=== PATIENT | female | born 1990 | race Asian ===

== ENCOUNTER 2022-01-05 15:12 | Outpatient (CLI) | payer BC, SELFPAY ==
[2022-01-05 18:48] LABS: HIV 1/2/P24 Combo Screen* Negative (Negative)
[2022-01-05 19:51] LABS: Hepatitis B Surface Antigen* Negative (Negative)
[2022-01-05 20:08] LABS: Hepatitis C Virus Antibody* Negative (Negative)
[2022-01-05 20:43] LABS: Chlamydia DNA Amplified* NOT DETECTED (No Detected); GC DNA Amplified* NOT DETECTED (No Detected)
[2022-01-07 14:26] LABS: Varicella-Zoster Virus Ab, IgG <10.0 IV
[2022-01-07 14:27] LABS: Rapid Plasma Reagin (RPR) Non Reactive (Non Reactive)
== END 2022-01-05 15:13 | disposition home or self-care (01) ==
PROVIDERS: PCP Family Medicine; Visit Provider Advanced Practice Midwife
DX: Z34.91 Encounter for supervision of normal pregnancy, unspecified, first trimester (principal); Z3A.11 11 weeks gestation of pregnancy
CPT/HCPCS: 76801; 86592; 86703; 86762; 86787; 86803; 86850; 86900; 86901; 87086; 87340; 87491; 87591; 87624; 88175

== ENCOUNTER 2022-03-06 09:10 | Outpatient (CLI) | payer BC, SELFPAY ==
--- NOTE | 2022-03-06 09:15 | CRLHL7_ITS ---
For Patients: As a result of the Century Cures Act, medical imaging exams and procedure reports are released immediately into your electronic medical record. You may view this report before your referring provider. If you have questions, please contact your health care provider. INDICATION: Evaluate anatomy. COMPARISON: 01/05/2022 TECHNIQUE: Real time amor scale imaging of the fetus was performed as well as color Doppler analysis of the umbilical vessels. FINDINGS: Sonographic imaging demonstrates a single living intrauterine gestation. Fetus demonstrates a regular cardiac rate of 173 beats per minute. Fetus has a breech position. The placenta lies posterior. The edge of the placenta is located 0.7 cm from the internal cervical os on the transvaginal images. Amniotic fluid volume appears normal. Single deepest vertical pocket: 3.8 cm. The cervix is closed and measures 4.5 cm in length. The composite ultrasound gestational age is calculated at 19 weeks 6 days with an estimated sonographic due date of 07/25/2022. The estimated weight is 320 grams which lies at the 56th %. The following biometric measurements were obtained: Biparietal diameter: 4.6 cm/19 weeks 6 days 55th% Head circumference: 16.7 cm/19 weeks 3 days 26th% Abdominal circumference: 15.1 cm/20 weeks 3 days 67th% Femur length: 3.1 cm/19 weeks 4 days 34th% The HC/AC ratio measures: 1.10 range (1.08-1.26) On anatomic survey, there is a normal appearance of the cerebral ventricles, cavum septi pellucidi, cisterna magna and cerebellum. The nose, lips, and facial profile appear normal. The cervical, thoracic and lumbar spine are well visualized and appear normal. There is a normal four-chamber heart view and the left and right ventricular outflow tracts are not well visualized. The diaphragm and stomach appear normal. The kidneys and bladder also appear normal. There is a normal three-vessel cord and cord insertion site. The four extremities appear normal. IMPRESSION: Incomplete visualization of the LVOT and RVOT due to position. Normal four-chamber heart. Remainder of the anatomic survey is normal. Low lying posterior placenta with the edge of the placenta located 7 millimeters from the internal cervical os. There is a curvilinear band within the fundal gestational sac arising from the edge of the placenta. This is best appreciated on the cine clips although is also visualized on the static image . Differential diagnosis includes amniotic shelf, circumvallate placenta or amniotic band. Maternal medicine consult recommended. Dictated by Chuy Kaur MD @ 03/06/2022 11:13:46 AM (Electronically Signed)
== END 2022-03-06 09:11 | disposition home or self-care (01) ==
LOC: US 09:10
PROVIDERS: PCP Family Medicine; Visit Provider Advanced Practice Midwife
DX: Z34.82 Encounter for supervision of other normal pregnancy, second trimester (principal); Z3A.19 19 weeks gestation of pregnancy
CPT/HCPCS: 76805; 76817

== ENCOUNTER 2022-05-06 08:06 | Outpatient (CLI) | payer BC, SELFPAY ==
[2022-05-06 08:15] LABS: Glucose Fasting Check 79 mg/dl (60-115)
[2022-05-06 11:54] LABS: Glucose 1 Hour Gest 189 mg/dl (70-180)
[2022-05-06 11:55] LABS: Glucose GTT-Gestational 3 Hr 106 mg/dl (70-140)
== END 2022-05-06 08:07 | disposition home or self-care (01) ==
LOC: NFLDREF 08:06
PROVIDERS: PCP Family Medicine; Visit Provider Advanced Practice Midwife
DX: Z34.03 Encounter for supervision of normal first pregnancy, third trimester (principal)
CPT/HCPCS: 82951; 82952

== ENCOUNTER 2022-06-08 09:15 | Outpatient (CLI) | payer BC, SELFPAY ==
--- NOTE | 2022-06-08 09:15 | CRLHL7_ITS ---
For Patients: As a result of the Century Cures Act, medical imaging exams and procedure reports are released immediately into your electronic medical record. You may view this report before your referring provider. If you have questions, please contact your health care provider. OB ULTRASOUND 06/08/2022 CLINICAL HISTORY: Small for dates, growth. JOSE by LMP: 07/26/2022. GA: 33 weeks 1 day. Gestation: Single. FINDINGS: CERVIX: Not visualized. POSITION: Vertex. AMNIOTIC FLUID: 5.2 cm. PLACENTA: TA. Posterior left wall. DOPPLERS: heart rate: 141 bpm. BIOMETRY: BPD: 8.3 cm, 33 weeks 4 days. 57% HC: 30.8 cm, 34 weeks 3 days. 45% AC: 29.0 cm, 33 weeks 0 days. 48% FL: 6.2 cm, 32 weeks 2 days. 17% EFW: 2091 g, 4 lb 10 oz. age by this US: 33 weeks 2 days. JOSE by this US: 07/25/2022. Percentile by JOSE: 36% IMPRESSION: Single live intrauterine gestation at 33 weeks 2 days. JOSE 07/25/2022. Estimated weight measures 2091 grams which lies at the 36th percentile. Laura Clements M.D. Diagnostic/Breast Radiologist [email or web address] Transcribed: 11:18 a.m. DW/Dictated by: Laura Clements MD @ 06/08/2022 10:04:00 AM (Electronically Signed)
== END 2022-06-08 09:16 | disposition home or self-care (01) ==
LOC: US 09:15
PROVIDERS: PCP Family Medicine; Visit Provider Advanced Practice Midwife
DX: O36.5930 Maternal care for other known or suspected poor fetal growth, third trimester, not applicable or unspecified (principal); Z3A.33 33 weeks gestation of pregnancy
CPT/HCPCS: 76816

== ENCOUNTER 2022-06-29 10:35 | Outpatient (CLI) | payer BC, SELFPAY ==
[2022-06-30 14:06] LABS: Strep B DNA Probe NEGATIVE (Negative)
[2022-06-30 15:16] LABS: Strep B Pen/Amox Allergy y
== END 2022-06-29 10:36 | disposition home or self-care (01) ==
LOC: NFLDREF 10:35
PROVIDERS: PCP Family Medicine; Visit Provider Advanced Practice Midwife
DX: Z34.93 Encounter for supervision of normal pregnancy, unspecified, third trimester (principal); Z3A.36 36 weeks gestation of pregnancy
CPT/HCPCS: 87081; 87653

== ENCOUNTER 2022-07-30 14:40 | Inpatient (IN) | payer BC, SELFPAY ==
[2022-07-30] VITALS (37 sets, daily range): BP systolic 129–162; BP diastolic 65–97; PULSE 59–99; RESP 18; TEMP 37.2–37.4; O2SAT 98–100; BMI 29.6
[2022-07-30 14:23] LABS: Amnisure Rom* Negative
--- NOTE | 2022-07-30 16:26 | P.LDBA_ITS ---
Subjective History of Present Illness Narrative: Pau is a 32 yo at 40 4/7 weeks gestation being admitted to Labor and Delivery for spontaneous onset of labor. She reports contractions started yesterday, midday. Initially they were irregular and mild. She was able to sleep some overnight but was frequently awoken by contractions. This morning about 7 am she had a burst of fluid in her underwear where she thought her water had possibly broke. She did not feel it was urine but she has not had much discharge since this time. Her contractions have intensified and are now regular. She is working hard to breath through them. She initially asked for an epidural but has since decided to wait and move around. Her full history and physical was dictated by Rebecca Zayas CNM on 07/06/2022. Please see this for details. OB 1. Varicella non-immune Recommend vaccine 2. NILM pap with +HPV Retest in 1 year 3. Synechiae 4. Low-lying placenta (0.7 cm from os): RESOLVED (see below) 5. Abnormal anatomy scan - difficult to view cardiac outflow tracts r/t position, low lying placenta, band within fundal gestational sac - possible amniotic shelf or band or circumvallate placenta. Referral for MFM placed. Adrián MFM 03/17/22: No previa, over 2 cm from os. EFW 83%. No abnormalities detected. ADAMS: WNL. Fundal right uterine synechiae, likely scar from her prior miscarriage. Does not lead to any adverse outcomes. 6. Failed 1 hour GTT 144 passed 3 hr, 3/4 numbers; declines nutrition referral 7. Anemia, hgb 10.3 at 28 weeks. Hgb 10.5 at 36 weeks. Recommended iron daily 8. Covid positive 06/01/22. Growth at 33 weeks: 36%ile Growth u/s 37 weeks: Declines 9. Measuring small for dates at 32 wks. Growth u/s: EFW 36% at 33 wks Repeat growth ordered at 39 weeks: 43%ile OB - Problem Based A/P Additional Plan (1) Spontaneous onset of labor: Status: Acute (2) Pain during labor: Status: Acute (3) 40 weeks gestation of : Status: Acute Plan ASSESSMENT:? 32 yo at 40 4/7 weeks gestation?by 1st trimester US complicated by:?Synechiae (right upper uterine scarring), anemia, COVID + Labor type: Spontaneous, Early labor? Category 1 FHR pattern.?? Labor complicated by: none? GBS negative? ? PLAN:? 1. Routine intrapartum cares as ordered. Continue with expectant management? 2. Monitoring per policy, intermittent until epidural placement, then continuous? 3. Planning for an epidural. Candidate for analgesia of choice when she requests.?? 4. Patient encouraged to reposition and ambulate to promote physiologic labor and .? 5. Anticipate ? Delivery/Labor/Induction Plan Plan: expectant management OB Exam Physical Exam Vital signs: Temp Pulse Resp BP Pulse Ox 98.9 F 67 18 138/87 98 07/30/22 13:45 07/30/22 13:45 07/30/22 13:45 07/30/22 13:45 07/30/22 13:45 Narrative: Vitals Reviewed Constitutional:? Alert and oriented x3 HEENT:? Normocephalic, atraumatic Neck:? Supple Lungs:? Clear to auscultation bilaterally Heart:? Regular rate and rhythm, no murmur, rub or gallop Abdomen:? Soft, nontender, and gravid. Vertex by Jeramy's, confirmed with cervical exam by RN. Extremities:? No edema or erythema Detailed Labor and Delivery Exam Patient Gravid: Yes Dilation (cm): 3 Effacement (%): 70 Contraction Frequency: 2-3 minutes Tachysystole: No Contraction intensity: Moderate Fetus (Single) Station: 0 Amniotic Membrane Status: intact Heart Rate Baseline: 155 Monitor Accelerations: Absent Monitor Decelerations: None Director Of Outreach Variability: Moderate (6-25)
[2022-07-30] MEDS: LACTATED RINGERS 1000 ML 1,000 ML 125 ML IV ×2 (16:56→18:24)
[2022-07-30] MEDS: ROPIVACAINE 0.2% 100 ml 100 ML 12 MG EPIDURAL (17:49)
[2022-07-30] MEDS: LIDOCAINE 2% (PF) 5 ML VIAL EPIDURAL (17:49)
--- NOTE | 2022-07-30 17:52 | PM.ANBPRC ---
PFSH COUNTS INCLUDE 234 BEDS AT THE [facility] Medical History (Updated 07/30/22 @ 16:37 by Rula Haas CNM) Primary oligomenorrhea ?N91.3 - Primary oligomenorrhea (ICD-10) Missed (2020) ?O02.1 - Missed (ICD-10) Surgical History (Updated 01/05/22 @ 15:15 by Kathy Powers CNM) [place] teeth extracted ?K08.409 - Partial loss of teeth, unspecified cause, unspecified class (ICD-10) Family History (Updated 02/03/22 @ 11:34 by Chikis Thomason) Other No family history of breast cancer No family history of cardiovascular disease No family history of colorectal cancer Social History Smoking Status: Never smoker Little interest or pleasure in doing things: more than half the days Feeling down, depressed, or hopeless: more than half the days Meds Home Medications and Allergies Home Medications Medication Instructions Recorded Confirmed Type multivitamin no.47-iron fum 27 cap PO 03/06/22 07/27/22 History mg-folate no.1 1 mg-dha 300 mg capsule (PNV-DHA) Allergies Allergy/AdvReac Type Severity Reaction Status Date / Time No Known Drug Allergies Allergy Verified 07/27/22 09:36 Results Labs Labs: Laboratory Results - last 24 hr 07/30/22 13:53 Membrane Rupture Negative Vital Signs Vital Signs: Last Vital Signs Temp 98.9 F 07/30/22 13:45 Pulse 65 07/30/22 17:50 Resp 18 07/30/22 13:45 BP 134/84 07/30/22 17:50 Pulse Ox 100 07/30/22 17:40 Weight: 78.381 kg Height: 162.56 cm Anesthesia Procedures Epidural Insertion Patient Location: OB Start Time: 17:10 Stop Time: 17:55 Start Date: 07/30/22 Stop Date: 07/30/22 Reason for Block: primary anesthetic Patient Position: sitting Performed By: Jean Pierre Davis Preanesthetic Checklist: IV checked, risks and benefits discussed, surgical consent, monitors and equipment checked, pre-op evaluation, timeout performed and anesthesia consent Prep: chlorhexidine gluconate Monitoring: blood pressure monitoring, night monitor, continuous pulse oximetry and heart rate Approach: midline Vertebral Space: lumbar (1-5) Needle Type: Tuohy needle Injection Technique: continuous catheter (catheter) Needle gauge: 17 Needle Length (cm): 10 cm Needle Insertion Depth (cm): 5 Catheter Gauge: 19 Catheter Type: multi-orifice Catheter at skin depth (cm): 10 Test Dose Result: negative and lidocaine 1.5% with epinephrine 1 to 200,000
[2022-07-30] MEDS: OXYTOCIN 30 unit/500 ML in NS 30 UNIT/500 ML BAG 300 UNIT IVPB (20:30)
[2022-07-30] MEDS: ACETAMINOPHEN 500 MG TABLET 1000 MG PO (20:47)
[2022-07-30] MEDS: LIDOCAINE 1 % PF 30 ML INJECTION (20:47)
--- NOTE | 2022-07-30 21:17 | W.PM.OBVAGDE ---
OB Procedure Vag Delivery Mother Details Mother Details: Pau is a 32 year-old, 2, Para 0, admitted on 07/30/22 at 40 4/7 Days gestation for spontaneous onset of labor. : 2 Para: 1 Weeks Gestation: 40 Admission Date: 07/30/22 Additional Details Amniotic Membrane Status: SROM Amniotic Membrane Rupture Date: 07/30/22 Amniotic Membrane Rupture Time: 20:27 Amniotic Membrane Fluid Description: Meconium Stained Analgesia/Anesthesia Type: Epidural Waterbirth: No Pitcoin: Yes ([facility] only) Intrapartal Events: Mod/Heavy Meconium Fluid (noted at delivery) Labor Onset: 16:44 Complete: 18:28 Pushin:35 Heart: heart tones during second stage were reassuring, category II, with early and variable decelerations noted with pushing. Return to baseline between with moderate variability. Variable decelerations iftikhar dropped to 90's near the last 30 minutes of pushing. Delivery Details Delivery Date: 07/30/22 Delivery Time: 20:27 Route of delivery: Gender: Female Infant Viability: Alive; Heart Rate Present Position at Delivery: OA Delivery Details: Patient was admitted for spontaneous labor and progressed normally. SROM noted at time of delivery with moderate meconium with scant amount of fluid. Amnisure on admission was negative, however minimal amniotic fluid was present at time of delivery and baby delivered almost entirely in the amniotic sac. Patient was complete at 1828 and pushing at 1835. Good maternal effort noted. of a viable female at 2026 in left tilt semi brooke on the bed. Vertex delivered OA with amniotic sac across face and body. Nuchal cord x 2, loose and easily reduced through amniotic sac. No shoulder. Body delivered easily and without incident. assessed in CNM arms while removal of amniotic sac was removed from face and mouth followed quickly by spontaneous cry. Infant was then passed to mothers abdomen. Cord was clamped and cut at > 5 minutes. APGARS were 9 at one minute and 9 at five minutes respectively. Mouth was bulb suctioned. Moderate amount of bleeding noted before placenta, IV pitocin started and rectal cytotec was requested. Intact placenta with a 3 vessel cord delivered spontaneously at 2042, bleeding improved. Fundus firm. 2nd degree identified and repaired in typical fashion. Slow trickle of bleeding noted during repair, rectal cytotec was given. Moderate vaginal swelling of labia minora with a few vaginal hematomas on left side of vaginal opening. Rectal hemorrhoid noted anteriorly toward vaginal opening. QBL 600 cc. Mother and baby stable; mother plans to breastfeed. Infant weight pending. 1 Minute Interval Total Score: 9 5 Minute Interval Total Score: 9 Additional Details Shoulder Dystocia: No Placenta Delivery Time: 20:43 Placental Delivery Description: Spontaneous Delivery repair: Vicryl (3-0) Procedure Done: Global Blood Loss: 600 Laceration: Perineal - 2nd Degree Blood Loss Measurement Type: QBL Bakri Used: No Sponge/Need Count Correct: Yes Cord Vessel Description: 3 Vessels, Nuchal Cord, Loose and Reduced Event Summary Status: Mother and were stable after delivery. Disposition: floor
[2022-07-30 21:47] LABS: Hematocrit 35.9 % (33.0-51.0); Hemoglobin* 11.6 gm/dL (12.0-16.0); Mean Corpuscular HGB Conc 32 gm/dL (32-36); Mean Corpuscular Hemoglobin 26 pg (26-34); Mean Corpuscular Volume 82 fL (80-100); Platelet Count* 271 K/uL (140-440); Red Blood Count 4.39 m/uL (4.00-5.20); White Blood Count* 14.29 K/uL (4.50-11.00)
[2022-07-30 21:49] LABS: Alanine Aminotransferase* 20 U/L (4-35); Aspartate Amino Transferase* 25 U/L (12-35); Blood Urea Nitrogen* 7 mg/dL (5-24); Creatinine* 0.5 mg/dL (0.5-1.5); Est. Creatinine Clearance* 140.78; Estimated Glomerular Filt Rate 129 ml/min; Slide Review Reflex No
[2022-07-30 21:54] LABS: Total Protein Urine 22 mg/dL
[2022-07-30 21:55] LABS: Creatinine Urine 46.4 mg/dL
[2022-07-30] MEDS: OXYTOCIN 10 UNIT/ML INJ IM (21:58)
[2022-07-31 01:05] VITALS: BP 119/74; PULSE 73; RESP 16; TEMP 36.7; O2SAT 98
[2022-07-31 04:30] VITALS: BP 135/73; PULSE 71; RESP 16; TEMP 37.3
[2022-07-31] MEDS: ACETAMINOPHEN 500 MG TABLET 1000 MG PO ×3 (07:40→20:47)
[2022-07-31] MEDS: DOCUSATE SODIUM 100 MG CAPSULE PO (07:41)
[2022-07-31 07:45] VITALS: BP 129/84; PULSE 62; RESP 16; TEMP 36.7; O2SAT 99
[2022-07-31 07:51] LABS: Hematocrit 28.5 % (33.0-51.0); Hemoglobin* 9.5 gm/dL (12.0-16.0); Mean Corpuscular HGB Conc 33 gm/dL (32-36); Mean Corpuscular Hemoglobin 27 pg (26-34); Mean Corpuscular Volume 81 fL (80-100); Platelet Count* 239 K/uL (140-440); Red Blood Count 3.52 m/uL (4.00-5.20); White Blood Count* 13.43 K/uL (4.50-11.00)
[2022-07-31 08:00] LABS: Slide Review Reflex No
--- NOTE | 2022-07-31 08:07 | PM.OBPNVD1 ---
OB - PN:Subj Subjective Time Seen by Provider: 08:07 Date Seen: 07/31/22 Interval history: Pau is a 32 y.o. who was admitted to L & D for labor. She had an uncomplicated NVD. Preeclampsia was noted during labor. Patient comments OB post-: no complaints, pain well controlled, tolerating diet and flatus present status: doing well Narrative: The patient feels well. The pain is well controlled with current medications. She has no new complaints. She is breast feeding and reports things are overall going well, but that she is still learning.? the patient has done well.? Vitals have been stable.? She has remained afebrile.? Has a good appetite, is tolerating a general diet. She is voiding without difficulty.? She is passing gas and has not had a bowel movement.? She is ambulating and denies any dizziness.? Has Small amount of rubra lochia. OB - PN: Obj Exam Physical Exam: Vital signs: Temp Pulse Resp BP Pulse Ox O2 Del Method 98.1 F 62 16 129/84 99 Room Air 07/31/22 07:45 07/31/22 07:45 07/31/22 07:45 07/31/22 07:45 07/31/22 07:45 07/31/22 07:45 Narrative: GENERAL APPEARANCE: normal affect, alert, no distress MOOD: appropriate HEENT: normocephalic, neck supple, full ROM CHEST: Symmetrical chest wall movement. Normal respiratory effort. Clear to auscultation HEART: regular rate and rhythm ABDOMEN: soft, non-tender. Uterine fundus is firm, at Umbilicus, Midline and is appropriate for the stage of recovery. Bowel sounds present. PERINEUM: moderate edema of the perineum, there is a 2nd degree laceration that is healing well. No hematomas noted externally at this time EXTREMITIES: normal and no edema OB - PN: Obj Data Labs Labs: Laboratory Results - last 24 hr 07/30/22 07/30/22 07/30/22 13:53 20:14 21:29 WBC 14.29 H RBC 4.39 Hgb 11.6 L Hct 35.9 MCV 82 MCH 26 MCHC 32 Plt Count 271 BUN 7 Creatinine 0.5 Estimated Creat Clear 140.78 Estimated GFR 129 AST 25 ALT 20 Urine Creatinine 46.4 Protein/Creatinin Ratio 0.40 H Urine Total Protein 22 Membrane Rupture Negative 07/31/22 07/31/22 07:30 07:30 WBC 13.43 H RBC 3.52 L Hgb Cancelled 9.5 L Hct 28.5 L MCV 81 MCH 27 MCHC 33 Plt Count 239 BUN Creatinine Estimated Creat Clear Estimated GFR AST ALT Urine Creatinine Protein/Creatinin Ratio Urine Total Protein Membrane Rupture OB - PN: A/P Vaginal Delivery Assessment and Plan (1) NVD (normal vaginal delivery): Status: Acute (2) Pre-eclampsia affecting childbirth: Problem details: w/out SF Status: Acute (3) Lactating mother: Status: Acute (4) Second degree laceration of perineum, delivered, current hospitalization: Status: Acute Plan Plan: routine care Comments: G 2 P 1 status post uncomplicated NVD 1. Continue route PP cares 2. . May see if desired 3. Acute anemia. Iron supplement ordered 4. Anticipate discharge home tomorrow 5. Mild Preeclampsia noted during labor. BPs remain stable at this time. Previous labs WNL, this AMs labs remain pending at this time.
[2022-07-31 08:08] LABS: Alanine Aminotransferase* 19 U/L (4-35); Aspartate Amino Transferase* 35 U/L (12-35)
[2022-07-31 08:09] LABS: Blood Urea Nitrogen* 9 mg/dL (5-24)
[2022-07-31 08:25] LABS: Creatinine* 0.6 mg/dL (0.5-1.5); Est. Creatinine Clearance* 117.31; Estimated Glomerular Filt Rate 123 ml/min
[2022-07-31] MEDS: IBUPROFEN 600 MG TABLET PO ×2 (10:55→19:16)
[2022-07-31 12:48] VITALS: BP 132/81; PULSE 65; RESP 16; TEMP 37; O2SAT 98
[2022-07-31 13:00] LABS: Hematocrit 27.5 % (33.0-51.0); Hemoglobin* 8.9 gm/dL (12.0-16.0); Mean Corpuscular HGB Conc 32 gm/dL (32-36); Mean Corpuscular Hemoglobin 26 pg (26-34); Mean Corpuscular Volume 81 fL (80-100); Platelet Count* 211 K/uL (140-440); Red Blood Count 3.39 m/uL (4.00-5.20); White Blood Count* 13.47 K/uL (4.50-11.00)
[2022-07-31 13:11] LABS: Slide Review Reflex No
[2022-07-31 13:13] LABS: Aspartate Amino Transferase* 31 U/L (12-35); Creatinine* 0.5 mg/dL (0.5-1.5); Est. Creatinine Clearance* 140.78; Estimated Glomerular Filt Rate 129 ml/min
[2022-07-31 13:14] LABS: Alanine Aminotransferase* 19 U/L (4-35); Blood Urea Nitrogen* 8 mg/dL (5-24)
[2022-07-31 16:00] VITALS: BP 124/75; PULSE 62; RESP 16; TEMP 36.8
[2022-07-31 18:22] LABS: Hematocrit 29.3 % (33.0-51.0); Hemoglobin* 9.5 gm/dL (12.0-16.0); Mean Corpuscular HGB Conc 32 gm/dL (32-36); Mean Corpuscular Hemoglobin 27 pg (26-34); Mean Corpuscular Volume 82 fL (80-100); Platelet Count* 245 K/uL (140-440); Red Blood Count 3.57 m/uL (4.00-5.20); White Blood Count* 13.74 K/uL (4.50-11.00)
[2022-07-31 18:31] LABS: Slide Review Reflex No
[2022-07-31 18:41] LABS: Alanine Aminotransferase* 20 U/L (4-35); Aspartate Amino Transferase* 36 U/L (12-35); Blood Urea Nitrogen* 8 mg/dL (5-24); Creatinine* 0.5 mg/dL (0.5-1.5); Est. Creatinine Clearance* 140.78; Estimated Glomerular Filt Rate 129 ml/min
[2022-07-31 19:24] VITALS: BP 126/84; PULSE 62; RESP 16; TEMP 36.6; O2SAT 99
[2022-08-01] MEDS: IBUPROFEN 600 MG TABLET PO ×2 (01:10→08:24)
[2022-08-01 01:14] LABS: Hematocrit 25.5 % (33.0-51.0); Hemoglobin* 8.2 gm/dL (12.0-16.0); Mean Corpuscular HGB Conc 32 gm/dL (32-36); Mean Corpuscular Hemoglobin 27 pg (26-34); Mean Corpuscular Volume 83 fL (80-100); Platelet Count* 216 K/uL (140-440); Red Blood Count 3.07 m/uL (4.00-5.20); White Blood Count* 11.76 K/uL (4.50-11.00)
[2022-08-01 01:17] VITALS: BP 117/74; PULSE 59; RESP 16; TEMP 36.6; O2SAT 98
[2022-08-01 01:25] LABS: Slide Review Reflex No
[2022-08-01 01:36] LABS: Alanine Aminotransferase* 18 U/L (4-35); Aspartate Amino Transferase* 32 U/L (12-35); Blood Urea Nitrogen* 11 mg/dL (5-24); Creatinine* 0.6 mg/dL (0.5-1.5); Est. Creatinine Clearance* 117.31; Estimated Glomerular Filt Rate 123 ml/min
[2022-08-01] MEDS: ACETAMINOPHEN 500 MG TABLET 1000 MG PO ×2 (03:33→12:51)
--- NOTE | 2022-08-01 08:02 | PM.OBDSVD1 ---
DS: Providers Provider Date Seen: 08/01/22 Date of admission: 07/30/22 14:40 Primary care physician: Saira Vann MD Admitting Clinician: Rula Haas CNM Attending Physician on discharge: Rula Haas CNM Date of Discharge: 08/01/22 DS: Diagnosis Discharge Diagnosis (1) care and examination immediately after delivery: Status: Acute (2) Pre-eclampsia: Status: Acute Problem details: Without SF. (3) Lactating mother: Status: Acute Exam Const: Vital Signs, click to edit/add: Vital Signs - 24 hr 07/31/22 12:48 07/31/22 16:00 07/31/22 19:24 Temperature 98.6 F 98.2 F 97.9 F Pulse Rate [Pulse Oximeter] 65 62 62 Respiratory Rate 16 16 16 Blood Pressure [Ri ght Arm] 132/81 124/75 126/84 Pulse Oximetry 98 99 Oxygen Delivery Me thod Room Air Room Air Room Air 08/01/22 01:17 Temperature 97.9 F Pulse Rate [Pulse Oximeter] 59 L Respiratory Rate 16 Blood Pressure [Ri ght Arm] 117/74 Pulse Oximetry 98 Oxygen Delivery Me thod Room Air OB - DS: Summary Hospital Course Hospital Course: Pau is a 32 year old G 2 P 1011 at 40.4 weeks gestation that was admitted to the Center on 07/30/22 for spontaneous onset of labor. She had an uncomplicated vaginal delivery. She delivered a viable female . The patient feels well. ?The pain is well controlled with current medications. ?She has no new complaints. ?She is breast feeding and reports things are going ok, the nurses are assisting her with feeds.? the patient has done well.? Vitals have been stable.? She has remained afebrile.? Has a good appetite, is tolerating a general diet. ?She is voiding without difficulty.? She is passing gas and has not had a bowel movement.? She is ambulating and denies any dizziness.? Has Small amount of rubra lochia. Hgb is 8.2, patient is asymptomatic. Iron supplementation started. BP has been normotensive since 07/30, however this am she had an elevated BP that remained mildly elevated after repeat. Rechecked 30 minutes later and was then normotensive. Discussed with Dr. Zimmerman, agrees with plan of discharge and recommends BP follow-up on Wednesday or Wednesday in person with RN. Peripartum Data Infant delivery method: Vaginal Laceration description: Perineal - 2nd Degree complications: none Infant Gender: Female Infant Discharge Plan: Home Status at Discharge Functional status at discharge: independent ambulation Overall status at discharge: patient is progressing back to baseline Time Spent with Patient Time attestation: Total time spent providing and/or coordinating discharge services: Time spent: Less than 30 minutes Discharge Plan Discharge Disposition: Home, Self-Care Date of Admission: 07/30/22 14:40 Attending Provider on Discharge: Rula Haas Primary Care Provider: Saira Vann Condition: Stable Anticipated Discharge Date/Time: 08/01/22 12:00 Discharge Medications: New acetaminophen 500 mg Tablet 1,000 mg PO Q6H PRN (Reason: pain/fever) Qty: 0 0RF docusate sodium 100 mg Capsule 100 mg PO DAILY PRN (Reason: Constipation) Qty: 90 0RF ferrous sulfate 325 mg (65 mg iron) Tablet 325 mg PO Q OTHER DAY Qty: 90 0RF ibuprofen 600 mg Tablet 600 mg PO Q6H PRNQty: 60 0RF Continued PNV-DHA 27 mg iron-1 mg -300 mg capsule PO Discontinued docusate sodium [Colace] 100 mg capsule 100 mg PO BID Qty: 100 1RF ondansetron HCl 4 mg tablet 4 mg PO TID PRN (Reason: nausea and vomiting) Qty: 30 3RF Discharge Orders: Discharge Order (Routine); Ordered 08/01/22 Ordered By: Rula Haas Patient Education: OB Over the Counter Medication Information, OB Vaginal/Breast Feeding Additional Instructions: Discharge instructions were reviewed with the patient including signs and symptoms of infection and home going medications Nothing vaginally for 6 weeks: no tampons or intercourse Off Work or School for 6 weeks Follow [facility] for a BP check?in person on Wednesday or Wednesday, per recommendation of Dr. Zimmerman Call with BP greater than or equal to 160/110 2-week visit: discuss infant feeding concerns, review control options and screen for anxiety/depression. 6-week visit for an annual exam. consultation services are available to all mothers and babies for the first year after delivery.? To make an appointment, please call [phone]. Activity Level: Activity as Tolerated Discharge Diet: Regular Follow Up Appointments: [facility] [Provider Group] Forms: [employer] Info Instructions
[2022-08-01 08:04] VITALS: BP 151/85; PULSE 56; RESP 16; TEMP 36.6; O2SAT 99
[2022-08-01 08:22] VITALS: BP 159/97
[2022-08-01] MEDS: DOCUSATE SODIUM 100 MG CAPSULE PO (08:24)
[2022-08-01] MEDS: FERROUS SULFATE 325 MG TABLET PO (08:32)
[2022-08-01 09:00] VITALS: BP 136/82; PULSE 56; RESP 16
[2022-08-01 12:00] VITALS: BP 110/66; PULSE 67; RESP 16; TEMP 36.4; O2SAT 100
== END 2022-08-01 13:54 | disposition home or self-care (01) | DRG 560 ==
LOC: OB OUT 14:41 → OB 14:41
PROVIDERS: Admitting Provider Advanced Practice Midwife; PCP Family Medicine; Visit Provider Advanced Practice Midwife
DX: O14.04 Mild to moderate pre-eclampsia, complicating childbirth (principal); O77.0 Labor and delivery complicated by meconium in amniotic fluid; O99.02 Anemia complicating childbirth; D62 Acute posthemorrhagic anemia; O70.1 Second degree perineal laceration during delivery; O87.2 Hemorrhoids in the puerperium; Z37.0 Single live birth; Z3A.40 40 weeks gestation of pregnancy
CPT/HCPCS: 01967; 36415; 82565; 82570; 84112; 84156; 84450; 84460; 84520; 85018; 85027; A9270; J2001; J2370; J2590; J2795; J7120